=== PATIENT | female | born 1945 | race Caucasian/White ===

== ENCOUNTER 2017-11-29 16:15 | Emergency (ER) | payer OTHER ==
[~2017-11-29] VITALS: Ht 167.6 cm; Wt 99.4 kg
[~2017-11-29 16:15] MED LIST: HYDR-3535 PO; LORA2TAB7 PO; LOVA20TA PO; OMEP20TA93 PO; OXYB5TAB8 PO; PARO10TA2 PO
[2017-11-29 16:22] VITALS: BP 128/68; PULSE 92; RESP 16; TEMP 98.7; O2SAT 95
[2017-11-29 17:56] LABS: AUTOMATED NEUTROPHIL # 3.2 TH/MM3 (1.8-7.7); BASOPHIL # 0.1 TH/MM3 (0-0.2); BASOPHIL % 1.4 % (0.0-2.0); EOSINOPHIL # 0.1 TH/MM3 (0-0.4); EOSINOPHIL % 1.8 % (0.0-4.0); HEMOGLOBIN 13.3 GM/DL (11.6-15.3); LYMPH % 14.4 % (9.0-44.0); LYMPHOCYTE # 0.6 TH/MM3 (1.0-4.8); MEAN CELL VOLUME 85.2 FL (80.0-100.0); MEAN CORPUSCULAR HEMOGLOBIN 28.3 PG (27.0-34.0); MEAN CORPUSCULAR HGB CONC 33.2 % (32.0-36.0); MONO % 9.2 % (0.0-8.0); MONOCYTE # 0.4 TH/MM3 (0-0.9); NEUT % 73.2 % (16.0-70.0); PLATELET COUNT 249 TH/MM3 (150-450); RED CELL DISTRIBUTION WIDTH 14.6 % (11.6-17.2); WHITE BLOOD COUNT 4.4 TH/MM3 (4.0-11.0)
[2017-11-29 18:04] LABS: CHLORIDE 105 MEQ/L (98-107); SODIUM (NA) 138 MEQ/L (136-145)
[2017-11-29 18:07] LABS: ALBUMIN 3.7 GM/DL (3.4-5.0); BICARBONATE 27.7 MEQ/L (21.0-32.0); BLOOD UREA NITROGEN 13 MG/DL (7-18); CALCIUM 8.9 MG/DL (8.5-10.1); GLUCOSE,RANDOM 121 MG/DL (74-106)
--- NOTE | 2017-11-29 18:07 | RADRPT ---
EXAM DATE/TIME: 11/29/2017 17:50 [facility] COMPARISON: No previous studies available for comparison. INDICATIONS : Chest pain and congestion. MEDICAL HISTORY : Uterine cancer SURGICAL HISTORY : None. ENCOUNTER: Initial ACUITY: 3 days PAIN SCORE: 5/10 LOCATION: Bilateral chest FINDINGS: Tiny scattered calcified granulomas are noted bilaterally. There is no focal infiltrate or pulmonary vascular congestion. The heart is mildly enlarged. Degenerative changes are noted throughout the thor acic spine. CONCLUSION: 1. Mild cardiomegaly. 2. No focal infiltrate or pulmonary vascular congestion Edgar Plasencia MD on November 29, 2017 at 18:02 Board Certified Radiologist. This report was verified electronically.
[2017-11-29 18:10] LABS: ALT (GPT) 24 U/L (10-53); AST (GOT) 20 U/L (15-37); CREATININE 0.69 MG/DL (0.50-1.00); GLOMERULAR FILTRATION RATE 84 ML/MIN (>89)
[2017-11-29 18:12] LABS: TOTAL BILIRUBIN ADULT 0.3 MG/DL (0.2-1.0); TOTAL PROTEIN 7.8 GM/DL (6.4-8.2)
[2017-11-29 18:13] LABS: ALKALINE PHOSPHATASE 93 U/L (45-117)
[2017-11-29 18:15] LABS: TROPONIN I LESS THAN 0.02 NG/ML (0.02-0.05)
[2017-11-29] MEDS ORDERED: OSEL75 PO (18:25)
--- NOTE | 2017-11-29 18:31 | PD ---
HPI Chief Complaint: Cold / Flu Symptoms Time Seen by Provider: 17:22 Travel History International Travel<30 days: No Contact w/Intl Traveler<30days: No Traveled to known affect area: No History of Present Illness HPI 72-year-old female that presents to the ED for evaluation of cold-like symptoms. Per patient she's had cold like symptoms for 3 days and has sick contacts including daughter. Per patient she was seen by her doctor today and she was sent here for evaluation. Patient also states that she's been having back cough that causes pain on her thoracic back and goes to her front. She's never had that before. She denies abdominal pain. No nausea or vomiting. Pain is more when she coughs. Cough is productive. Denies any chest pain otherwise. Denies any recent travel. Denies taking any blood thinners. No allergies to medication. No urinary or bowel movement issues. Patient denies sustaining the flu shot this year. Patient states that she has body aches and fevers as well. She's been taking OTC meds with some relief of the symptoms continue. Pain per patient is 4 out of 10. PFSH Past Medical History Hx Anticoagulant Therapy: No Blood Disorders: No Depression: Yes Cancer: Yes (ENDOMETRIAL) Cardiovascular Problems: Yes (CHOL) High Cholesterol: Yes Diabetes: No Glaucoma: No Hepatitis: No Hypertension: No Immune Disorder: No Implanted Vascular Access Dvce: No Musculoskeletal: Yes Neurologic: No Psychiatric: No Reproductive: Yes (ENOMETRIAL CA) Respiratory: No Thyroid Disease: No ?: Not Menopausal: Yes Past Surgical History Abdominal Surgery: No AICD: No Arteriovenous Shunt: No Cardiac Surgery: No Section: Yes (X 2) Ear Surgery: No Endocrine Surgery: No Eye Surgery: No Genitourinary Surgery: No Gynecologic Surgery: Yes Insulin Pump: No Joint Replacement: No Neurologic Surgery: No Oral Surgery: Yes (TONSILLECTOMY) Pacemaker: No Thoracic Surgery: No Tonsillectomy: Yes Other Surgery: Yes (RIGHT HAND) Social History Alcohol Use: No Tobacco Use: No Substance Use: No Allergies-Medications (Allergen,Severity, Reaction): Coded Allergies: No Known Allergies (Verified Adverse Reaction, Unknown, 11/29/17) Reported Meds & Prescriptions Reported Meds & Active Scripts Active Tamiflu (Oseltamivir Phosphate) 75 Mg Cap 75 Mg PO BID 5 Days Reported Lorazepam 2 Mg Tab 2 Mg PO Q8H PRN Paroxetine (Paroxetine HCl) 10 Mg Tab 10 Mg PO DAILY Lovastatin 20 Mg Tab 20 Mg PO DAILY Omeprazole 20 Mg Tab 20 Mg PO DAILY Ditropan (Oxybutynin Chloride) 5 Mg Tab 5 Mg PO Q12HR Review of Systems Except as stated in HPI: all other systems reviewed are Neg Physical Exam Narrative GENERAL: Well-nourished, well-developed patient in no apparent distress. SKIN: Warm and dry. HEAD: Atraumatic. Normocephalic. EYES: Pupils equal and round reactive to light and accommodation. No scleral icterus. No injection or drainage. ENT: No nasal bleeding or discharge. Mucous membranes pink and moist. TMs are clear with no sign of infection or perforation. No mastoid tenderness. Ear canals are intact bilaterally. No lymphadenopathy. Nostril mucosa is red and moist with clear mucus noted. No sinus tenderness to palpation noted. Tonsils are not enlarged or swollen. No ulvua Deviation. Tongue is midline. NECK: Trachea midline. No JVD. No meningeal signs noted CARDIOVASCULAR: Regular rate and rhythm. RESPIRATORY: No accessory muscle use. Clear to auscultation. Breath sounds equal bilaterally. GASTROINTESTINAL: Abdomen soft, non-tender, nondistended. Hepatic and splenic margins not palpable. MUSCULOSKELETAL: Extremities without clubbing, cyanosis, or edema. No obvious deformities. NEUROLOGICAL: Awake and alert. No obvious cranial nerve deficits. Motor grossly within normal limits. Five out of 5 muscle strength in the arms and legs. Normal speech. PSYCHIATRIC: Appropriate mood and affect; insight and judgment normal. Data Data Last Documented VS Vital Signs Date Time Temp Pulse Resp B/P (MAP) Pulse Ox O2 Delivery O2 Flow Rate FiO2 11/29/17 16:22 98.7 92 16 128/68 (88) 95 Orders Orders Electrocardiogram (11/29/17 17:33) Complete Blood Count With Diff (11/29/17 17:33) Comprehensive Metabolic Panel (11/29/17 17:33) Ckmb (Isoenzyme) Profile (11/29/17 17:33) Troponin I (11/29/17 17:33) Lipase (11/29/17 17:33) Influenzae A/B Antigen (11/29/17 17:33) Chest, Single Ap (11/29/17 17:33) Iv Access Insert/Monitor (11/29/17 17:33) Ecg Monitoring (11/29/17 17:33) Ed Discharge Order (11/29/17 18:25) Labs Laboratory Tests Test 11/29/17 17:50 White Blood Count 4.4 TH/MM3 Red Blood Count 4.70 MIL/MM3 Hemoglobin 13.3 GM/DL Hematocrit 40.0 % Mean Corpuscular Volume 85.2 FL Mean Corpuscular Hemoglobin 28.3 PG Mean Corpuscular Hemoglobin Concent 33.2 % Red Cell Distribution Width 14.6 % Platelet Count 249 TH/MM3 Mean Platelet Volume 7.0 FL Neutrophils (%) (Auto) 73.2 % Lymphocytes (%) (Auto) 14.4 % Monocytes (%) (Auto) 9.2 % Eosinophils (%) (Auto) 1.8 % Basophils (%) (Auto) 1.4 % Neutrophils # (Auto) 3.2 TH/MM3 Lymphocytes # (Auto) 0.6 TH/MM3 Monocytes # (Auto) 0.4 TH/MM3 Eosinophils # (Auto) 0.1 TH/MM3 Basophils # (Auto) 0.1 TH/MM3 CBC Comment DIFF FINAL Differential Comment Blood Urea Nitrogen 13 MG/DL Creatinine 0.69 MG/DL Random Glucose 121 MG/DL Total Protein 7.8 GM/DL Albumin 3.7 GM/DL Calcium Level 8.9 MG/DL Alkaline Phosphatase 93 U/L Aspartate Amino Transf (AST/SGOT) 20 U/L Alanine Aminotransferase (ALT/SGPT) 24 U/L Total Bilirubin 0.3 MG/DL Sodium Level 138 MEQ/L Potassium Level 4.3 MEQ/L Chloride Level 105 MEQ/L Carbon Dioxide Level 27.7 MEQ/L Anion Gap 5 MEQ/L Estimat Glomerular Filtration Rate 84 ML/MIN Total Creatine Kinase 77 U/L Troponin I LESS THAN 0.02 NG/ML Lipase 125 U/L MDM Medical Decision Making Medical Screen Exam Complete: Yes Emergency Medical Condition: Yes Medical Record Reviewed: Yes Interpretation(s) CBC & BMP Diagram 11/29/17 17:50 Total Protein 7.8, Albumin 3.7, Calcium Level 8.9, Alkaline Phosphatase 93, Aspartate Amino Transf (AST/SGOT) 20, Alanine Aminotransferase (ALT/SGPT) 24, Total Bilirubin 0.3 lipase WNL Last Impressions Chest X-Ray 11/29/17 2883 Signed Impressions: Service Date/Time: Wednesday, November 29, 2017 17:50 - CONCLUSION: 1. Mild cardiomegaly. 2. No focal infiltrate or pulmonary vascular congestion Edgar Plasencia MD troponin and CKMB negative EKG shows sinus rhythm with no sign of acute ischemia or arrhythmia read by me and attending. Influenza positive for influenza B Differential Diagnosis Influenza versus pneumonia versus a typical chest pain versus URI versus ACS less likely but still in differential Narrative Course 72-year-old female that presents to the ED for evaluation of cold like symptoms. Patient was properly examined and was found to have signs and symptoms very consistent appears to be cold-like symptoms. Patient does complain of some back pain that radiates to the chest. She doesn't have any abdominal pain. Pain is more with cough. She doesn't first have risk factors for ACS. This appears to be less likely. I do recommend labs and imaging at least check a troponin to see if anything has short of breath the symptoms with the chest pain started today. Labs and imaging were essentially unremarkable. She became positive for the influence and this is likely the source of all the symptoms. I discussed this with my attending who agrees with discharge. Patient will be given prescription for Tamiflu. Told to follow up closely with PCP. Take Motrin or Tylenol for pain and fever. Drink plenty of fluids. See ED worsening symptoms. OTC meds as needed. Diagnosis Primary Impression: Influenza B Patient Instructions: General Instructions Additional Instructions: Motrin and Tylenol for pain and fever. You can use [id number] antihistamine as well as well as Mucinex as needed for runny nose and congestion. Cough drops for cough as needed. Drink plenty of fluids. Follow-up with PCP. See ED for worsening symptoms. Med/Other Pt SpecificInfo: Prescription(s) given Scripts Oseltamivir (Tamiflu) 75 Mg Cap 75 MG PO BID for Mgmt Viral Infection for 5 Days, #10 CAP 0 Refills Prov: Soraya Morton MD 11/29/17 Disposition: 01 DISCHARGE HOME Condition: Stable Shoaib Greenberg Nov 29, 2017 18:31
--- NOTE | 2017-11-30 14:04 | EKG ---
Date Performed: 11/29/2017 Time Performed: 18:04:24 PTAGE: 72 years EKG: Sinus rhythm MARKED LEFT AXIS DEVIATION INCOMPLETE RIGHT BUNDLE BRANCH BLOCK Since previous tracing, no significa nt change noted ABNORMAL ECG PREVIOUS TRACING : 09/27/2008 07.50 DOCTOR: Jeronimo Mike Interpretating Date/Time 11/30/2017 14:03:04
== END 2017-11-29 18:40 | disposition home or self-care (01) ==
LOC: PHED 16:15 → PHEFT 18:40
DX: J10.1 Influenza due to other identified influenza virus with other respiratory manifestations (principal); E78.00 Pure hypercholesterolemia, unspecified; R94.31 Abnormal electrocardiogram [ECG] [EKG]
CPT/HCPCS: 71045; 80053; 82550; 83690; 84484; 85025; 87804; 93005; 99285